=== PATIENT | female | born 1975 | race Caucasian/White ===

== ENCOUNTER 2022-03-26 10:11 | Day surgery (SDC) | payer BC ==
[~2022-03-26 10:11] MED LIST: Lactated Ringers 1,000 ML IV SCH; Sodium Chloride 0.9% 10 ML Syringe FLUSH PRN; Sodium Chloride 0.9% 2.5 ML Syringe FLUSH PRN; Sodium Chloride 0.9% 20 ML SDV IV PRN
[2022-03-26] MEDS ORDERED: Propofol 200 MG/20 ML SDV ONE (11:24)
== END 2022-03-26 12:45 | disposition home or self-care (01) ==
LOC: MW.SDS 10:11
PROVIDERS: ATTEND Surgery
DX: Z12.11 Encounter for screening for malignant neoplasm of colon (principal); D12.3 Benign neoplasm of transverse colon; K62.1 Rectal polyp; E66.9 Obesity, unspecified; Z98.890 Other specified postprocedural states
CPT/HCPCS: 45380; 81025; J2704; J7120; 00812